=== PATIENT | male | born 1980 | race Two or more races ===

== ENCOUNTER 2025-02-03 10:08 | Emergency (ER) | payer OTHER ==
[~2025-02-03] VITALS: Ht 175.3 cm; Wt 74.8 kg
[2025-02-03 10:23] VITALS: BP 101/61; TEMP 98.5; O2SAT 99
[2025-02-03] MEDS ORDERED: CEPH-570 PO (10:55)
[2025-02-03] MEDS: CEPHALEXIN MONOHYDRATE 500 MG CAPSULE PO ONE (11:00)
[2025-02-03] MEDS ORDERED: CEPHALEXIN MONOHYDRATE 500 MG CAPSULE PO ONE (11:22)
== END 2025-02-03 11:37 | disposition home or self-care (01) ==
LOC: ER 10:23
DX: J34.0 Abscess, furuncle and carbuncle of nose (principal); Z91.018 Allergy to other foods